=== PATIENT | male | born 1975 | race Caucasian/White ===

== ENCOUNTER 2021-04-28 11:59 | Inpatient (IN) ==
[2021-04-28 12:59] LABS: Basophils # (auto) 0.02 K/uL (0-0.2); Basophils % (auto) 0.3 %; Hematocrit (blood only) 46.7 % (42-52); Hemoglobin 15.7 g/dL (14.0-18.0); Immature Granulocytes # (auto) 0.02 K/uL (0.00-0.02); Immature Granulocytes % (auto) 0.3 %; Lymphocytes # (auto) 0.95 K/uL (1.2-3.4); Mean Corpuscular Hemoglobin 30.1 pg (25-34); Mean Corpuscular Hgb Conc 33.6 g/dL (32-36); Mean Corpuscular Volume 89.5 fL (80-100); Mean Platelet Volume 10.1 fL (7.4-10.4); Monocytes # (auto) 0.82 K/uL (0.11-0.59); Monocytes % (auto) 12.1 %; Neutrophils # (auto) 4.99 K/uL (1.4-6.5); Neutrophils % (auto) 73.3 %; Platelet Count 205 K/uL (130-400); RDW Coefficient of Variation 12.8 % (11.5-14.5); RDW Standard Deviation 42.1 fL (36.4-46.3); Red Blood Count 5.22 M/uL (4.7-6.1)
--- NOTE | 2021-04-28 13:14 | XRay Report ---
XR chest 1V portable HISTORY: 46 years-old Male SOB acute shortness of breath COMPARISON: Chest radiograph 07/26/2018 TECHNIQUE: Portable AP view of the chest FINDINGS: Unchanged cardiomegaly. Interstitial coarsening with patchy multifocal airspace opacities. No pneumot horax or large pleural effusion. Degenerative changes of the shoulders and spine. IMPRESSION: Multifocal airspace opacities are suggestive of pneumonia. ACT 112: Negative or not required by law. The above report was generated using voice recognition software. It may contain grammatical, syntax o r spelling errors. Electronically signed by: Tristian Rees M.D. 04/28/2021 1:13 PM
[2021-04-28] MEDS ORDERED: KETOROLAC TROMETHAMINE 15 MG/ML VIAL IV STA (13:16)
[2021-04-28] MEDS ORDERED: ALBUTEROL HFA 8 GM INHALER INH ONE (13:16)
[2021-04-28] MEDS ORDERED: dexAMETHasone**PF** 10 MG/ML VIAL IV ONE (13:16)
[2021-04-28] MEDS ORDERED: guaiFENesin 600 MG TABCR PO STA (13:16)
[2021-04-28] MEDS ORDERED: SODIUM CHLORIDE 0.9% 1000ML 1,000 ML IV ONE (13:17)
[2021-04-28] MEDS ORDERED: FAMOTIDINE 20MG IV PUSH 20 MG/5 ML SYR IV STA (13:17)
[2021-04-28 13:26] LABS: Partial Thromboplastin Time 27.4 Seconds (21.0-31.0); Prothrombin Time 10.1 Seconds (9.0-12.0); Troponin I < 0.03 ng/ml (0-0.04)
[2021-04-28 13:38] LABS: Alanine Aminotransferase 21 U/L (7-52); Albumin Globulin Ratio 1.1 (0.9-2); Albumin Level 3.8 gm/dl (3.4-5.0); Alkaline Phosphatase 72 U/L (34-104); Anion Gap 9 (3-11); BUN Creatinine Ratio 13.1 (10-20); Bilirubin,Total 0.6 mg/dl (0.2-1.0); Blood Urea Nitrogen 11 mg/dl (6-23); Calcium 8.5 mg/dl (8.5-10.1); Carbon Dioxide 26 mmol/L (21-32); Chloride 102 mmol/L (98-107); Creatinine Clr Calc Pharmacy 151.7 ml/min; Est GFR (African American) 120.8 ml/min; Est GFR (Non-African American) 104.3 ml/min; Globulin 3.5 gm/dl (2.5-4.0); Glucose 99 mg/dl (70-99); Magnesium 1.9 mg/dl (1.7-2.4); Sodium 137 mmol/L (136-145); Total Protein 7.3 gm/dl (6.0-8.3)
[2021-04-28 14:50] LABS: Potassium 3.5 mmol/L (3.5-5.1)
[2021-04-28 15:05] LABS: Influenza A virus by PCR Negative (Neg); Influenza B virus by PCR Negative (Neg); RSV by PCR Negative (Neg)
[2021-04-28 15:11] LABS: SARS CoV2 RNA(COVID-19) InHosp POSITIVE (Negative)
--- NOTE | 2021-04-28 15:36 | History & Physical Report ---
Date of Service April 28, 2021 Assessment & Plan (1) Pneumonia due to COVID-19 virus: (2) Hypoxia: Plan: Patient is 46 y/o M with PMH attic arthritis, GERD, obesity, history of adrenal insufficiency due to corticosteroid withdrawal in past presented to ER with com plaint of cough, shortness of breath, COVID-19. Symptom onset on 04/17/2021 with chills. Positive COVID 19 test outpatient on 04/19/2021. 04/21/2021 started with cough, congestion. PCP prescribed zithromax yesterday for COVID PNA seen on CXR. Today in ER pt afebrile, P: 106 down to 88, BP: 124/81, 89% on RA up to 95% on 2L via NC No leukocytosis. CXR: multifocal airspace opacities. + COVID-19 PCR. Negative influenza PCR, negative RSV PCR In ER was given albuterol, dexamethasone 10 mg IV, Pepcid, guaifenesin, Toradol 15, 1L NSS Negative Procalcitonin. Will hold on further antibiotics at this time CRP, Ferritin pending Airborne isolation Supplemental oxygen Dexamethasone 6mg IV daily Remdesivir Prone as able Albuterol Incentive spirometry, flutter valve CBC, CMP in am (3) Psoriatic arthritis: Plan: Previously on methotrexate, however has been off for several months On chronic prednisone 7.5 mg daily. Patient self increased to 10 mg daily a week ago when he was feeling ill Hold prednisone currently as he is receiving dexamethasone (4) GERD (gastroesophageal reflux disease): Plan: Continue PPI (5) Obesity: Plan: BMI: 39 Lifestyle modifications recommended Patient on metoprolol succinate. Unknown diagnosis. Patient reports had a stress test in the past and was put on it as a preventative measure Continue metoprolol DVT Prophylaxis -Lovenox SQ Full code as per discussion with pt. patient reports if he would further deteriorate he would want to further discuss intubation in regards to his current COVID-[address] Jhony Ball for routine care Pt was seen and care coordinated with Dr Wooten. See addendum History of Present Illness Chief Complaint: Cough, covid Primary Care Provider: Jesse Mejia MD Patient is 46 y/o M with PMH attic arthritis, GERD, obesity, history of adrenal insufficiency due to corticosteroid withdrawal in past presented to ER with complaint of cough, shortness of breath, COVID-19. Patient reports symptom onset on 04/17/2021 with chills. He had positive COVID 19 test outpatient on 04/19/2021. Patient states 04/21/2021 started with cough, congestion. Patient had telemedicine visit with PCP and was given Tessalon Perles he has been taking without significant relief. Patient also reports has been using Mucinex. He reports he had outpatient chest x-ray which was consistent with COVID-pneumonia and he was prescribed azithromycin yesterday. Patient took first initial 2 doses. States past 2 to 3 days has been having short of breath when he has coughing episodes. He feels like he is unable to get enough "air in" when having coughing episodes. Denies chest pain, pleuritic chest pain. Patient is on prednisone 7.5 mg daily however when he started feeling ill he started taking 10 mg daily. Has had decreased appetite. Patient has not received COVID-19 va ccination. Other family members are also ill with COVID-19 currently. Denies hemoptysis. Denies known fever, diaphoresis, N/V/D/C, PAULA, dizziness, syncope, vision changes, neck pain, CP, orthopnea, palpitations, sore throat, choking, otalgia, loss of taste or smell, abdominal pain, paresthesias, weakness, extremity edema, rashes, urinary symptoms. Allergies Allergy/AdvReac Type Severity Reaction Status Date / Time No Known Allergies Allergy Unknown Unverified 04/28/21 14:43 Home Medications Medication Instructions Recorded Confirmed Type folic acid 1 mg tablet 1 mg PO QAM 07/26/18 04/28/21 History omeprazole 20 mg capsule,delayed 20 mg PO QAM 07/26/18 04/28/21 History release metoprolol succinate 25 mg 12.5 mg PO QAM 06/14/20 04/28/21 History tablet,extended release 24 hr prednisone 1 mg tablet 10 mg PO QAM 04/28/21 04/28/21 History Past Med/Surg History Medical History (Updated 04/28/21 @ 17:14 by Caroline Mahajan PA-C) GERD (gastroesophageal reflux disease) Obesity Psoriatic arthritis Surgical History (Updated 04/28/21 @ 17:10 by Caroline Mahajan PA-C) History of appendectomy Hx of tonsillectomy Family History (Updated 04/28/21 @ 17:11 by Caroline Mahajan PA-C) Other No significant family history Social History (Updated 04/28/21 @ 17:11 by Caroline Mahajan PA-C) Smoking Status: Never smoker Second Hand Exposure: No; Do You Dip or Chew Tobacco: No; Tobacco Cessation Education Requested by Patient: No Hx Alcohol Use: No Hx Substance Use: No Preferred Language: Macedonian Communication Ability: Effective Grid Caster Required: No Beliefs That Will Affect Care: None Current Living Situation: Spouse Current Living Situation Comment: home current occupational status: employed current occupation: Landscaping Other Information That Helps Us Care for You: No Feels Safe at Home: Yes Safety Concerns: Feels Safe At This Time Assistive Devices: None Review of Systems Review of Systems: All systems reviewed & are unremarkable except as noted in HPI & below Physical Exam Physical Exam: General: no distress, obese Head: normocephalic, atraumatic Eyes: PERRL, EOM's intact, conjunctiva non-injected, anicteric ENT: normal inspection external ears, nose, mucous membranes moist Neck: supple, trachea midline Lungs: clear, no respiratory distress on current 2L oxygen via NC with sat 95%, no wheezing/rhonchi/rales CV: RRR, no murmur, no pretibial edema Abd: +obese, normal BS, soft, non-tender Ext: no cyanosis, no calf tenderness Neuro: A&O x 3, no focal deficits noted, normal affect Skin: warm, dry Results & Data Results & Data ([facility]) Vital Signs (Past 12 Hours) Vital Signs Temp Pulse Pulse Resp BP BP Pulse Ox 04/28/21 13:00 100 H 20 133/91 95 04/28/21 12:07 36.8 C 106 H 22 124/81 91 Laboratory Results Short CBC 04/28/21 Range/Units 12:47 WBC 6.80 (4.8-10.8) K/uL Hgb 15.7 (14.0-18.0) g/dL Hct 46.7 (42-52) % Plt Count 205 (130-400) K/uL BMP 04/28/21 04/28/21 12:47 14:12 Sodium 137 Potassium 3.5 Chloride 102 Carbon Dioxide 26 BUN 11 Creatinine 0.84 Glucose 99 Calcium 8.5 Cardiac Enzymes 04/28/21 Range/Units 12:47 Troponin I < 0.03 (0-0.04) ng/ml Liver Function 04/28/21 04/28/21 Range/Units 12:47 14:12 Total Bilirubin 0.6 (0.2-1.0) mg/dl AST 26 (13-39) U/L ALT 21 (7-52) U/L Alkaline Phosphatase 72 (34-104) U/L Albumin 3.8 (3.4-5.0) gm/dl Diagnostic Findings Chest X-Ray 04/28/21 12:12 XR chest 1V portable HISTORY: 46 years-old Male SOB acute shortness of breath COMPARISON: Chest radiograph 07/26/2018 TECHNIQUE: Portable AP view of the chest FINDINGS: Unchanged cardiomegaly. Interstitial coarsening with patchy multifocal airspace opacities. No pneumothorax or large pleural effusion. Degenerative changes of the shoulders and spine. IMPRESSION: Multifocal airspace opacities are suggestive of pneumonia. ACT 112: Negative or not required by law. The above report was generated using voice recognition software. It may contain grammatical, syntax or spelling errors. Electronically signed by: Tristian Rees M.D. 04/28/2021 1:13 PM Supervising Physician Co-Signing Physician Notes Care coordinated with Caroline Mahajan PA-C. Agree with above note. Patient seen and examined. Please refer to her notes for full details. Vital signs reviewed. Physical exam: General exam: Alert and oriented. Not in acute distress. CVS: S1 and S2 heard, regular rate and rhythm, no murmurs. RS: Clear to auscultation, no wheezing or crackles. ABD: Soft, bowel sounds present, nontender, no distention. CTRS: Nonfocal. EXT: No edema, no erythema. Labs: Reviewed. Assessment and plan: 46Y M with hx of Psoriasis, Hx of Adrenal insufficiency secondary to corticosteroid withdrawal presents with Covid pneumonia. Sathya having symptoms since . No fevers. Has cough. Poor appetite. Lately having lot of coughing spells which making him sob thats the reason he came to ER today. Currently on 2lts oxygen he is doing fine. Covid pneumonia started on remdesivir and decadron supportive care if worsening can get CTA chest. Hx of Psoriasis Currently on prednisone which is held as started on decadron. Other diagnosis and plan of care as per Caroline Mahajan PA-C. Reyes dai MD.
[2021-04-28] MEDS ORDERED: REMDESIVIR 200 MG in SODIUM CHLORIDE 0.9% 210 ML IV STA (15:51)
[2021-04-28 16:27] LABS: Ferritin 1152.6 ng/ml (8-388)
--- NOTE | 2021-04-28 18:40 | Emergency Department Note ---
Impression & Plan Pneumonia due to COVID-19 virus, Psoriatic arthritis, Hypoxia, Nausea ED Provider Note NAME: ALIYA PERALTA Jr AGE: 46 SEX: M ARRIVES VIA: Walk-In INFORMANT: Patient ED PROVIDER(S): Roverto Martines MD CHIEF COMPLAINT: SOB, COVID. PLAN: Disposition: Admit MEDICAL DECISION MAKING: The patient is a pleasant 46-year-old gentleman with a past medical history of psoriatic arthritis on chronic prednisone who presents to the emergency department for evaluation of worsening fevers, body aches, cough, shortness of breath, nausea and diarrhea with decreased oral intake over the past week in the setting of being diagnosed with COVID-19. Patient reports he had an x-ray through his doctor a couple of days ago which showed pneumonia and so was prescribed an antibiotic. He reports feeling some initial improvement for a day or so but then began to worsen. He is not vaccinated for COVID-19. On arrival the patient is uncomfortable but no acute distress, afebrile with heart in the 100s and O2 saturation 89% on room air and so was placed on 2 L nasal cannula with improvement to 98%. He appears clinically dry. Lungs with scant intermittent wheeze and rhonchi. Abdomen is benign. EKG without overt acute ischemia. Chest x-ray negative for acute c ardiopulmonary process. WBC, H/H and platelets within normal limits. He does have mild lymphopenia 2.95 consistent with the patient's known COVID-19 infection. Chemistry without metabolic acidosis. Electrolytes and LFTs without significant abnormality. Troponin negative/undetectable. COVID-19 PCR was positive. Influenza PCR was negative. Given the patient's hypoxia he was treated with dexamethasone. The patient agrees with plan for admission for further management. Case was discussed with Ledy Mahajan [facility] PAC with Dr. Wooten, [facility] hospitalist, who will evaluate the patient for admission. Triage Nursing notes reviewed and agree them. Prior medical records reviewed Vital Signs: reviewed and remarkable for hypoxia, tachycardia. Differential diagnosis: Reactive airway disease, pneumonia, pneumothorax, COPD, CHF, infections, cardiac ischemia, pulmonary embolism, musculoskeletal, gastrointestinal, as well as other pathologies. ER treatment provided: See below. Diagnostics interpreted by me: ECG: Normal sinus rhythm, 98 bpm, no ectopy, no overt ST elevation or depression, QTC 454, QRS 86. Cardiac Monitoring: An order for continuous cardiac monitoring was placed and demonstrated normal sinus rhythm, 98 bpm, no ectopy. Laboratory studies: See below Imaging studies: See below Consultation(s): Ledy Mahajan, [facility] PAC with Dr. Wooten, [facility] hospitalist. HPI: The patient is a pleasant 46-year-old gentleman with a past medical history of psoriatic arthritis on chronic prednisone who presents to the emergency department for evaluation of worsening fevers, body aches, cough, shortness of breath, nausea and diarrhea with decreased oral intake over the past week in the setting of being diagnosed with COVID-19. Patient reports he had an x-ray through his doctor a couple of days ago which showed pneumonia and so was prescribed an antibiotic. He reports feeling some initial improvement for a day or so but then began to worsen. He is not vaccinated for COVID-19. ROS: See above HPI for pertinent positives & negatives. A total of 10 systems reviewed and were otherwise negative. PAST MEDICAL HISTORY:See Below PAST SURGICAL HISTORY:See Below FAMILY HISTORY:See Below SOCIAL HISTORY:See Below HOME MEDICATIONS:See Below ALLERGIES:See Below VITALS:See Below PHYSICAL EXAMINATION: GENERAL: Awake, alert, fatigued/uncomfortable-appearing, in no distress HENT: Normocephalic, atraumatic. Oropharynx unremarkable. EYES: Normal conjunctiva. Sclera non-icteric. NECK: Supple. No nuchal rigidity. FROM. No JVD. RESPIRATORY: Scant intermittent wheeze and rhonchi. CARDIAC: Regular rate, normal rhythm. Extremities warm and well perfused. Pulses equal. ABDOMEN: Soft, non-distended. No tenderness to palpation. No rebound or guard ing. No masses. RECTAL: Deferred. MUSCULOSKELETAL: Chest examination reveals no tenderness. The back is symmetrical on inspection without obvious abnormality. There is no CVA tenderness to palpation. No joint edema. LOWER EXTREMITIES: Calves are equal size bilaterally and non-tender. No edema. No discoloration. NEURO: Normal sensorium. No sensory or motor deficits noted. SKIN: No rash or jaundice noted. Roverto Martines MD Past Med/Surg History Medical History GERD (gastroesophageal reflux disease) Obesity Psoriatic arthritis Surgical History History of appendectomy Hx of tonsillectomy Family History Other No significant family history Social History Smoking Status: Never smoker Second Hand Exposure: No; Do You Dip or Chew Tobacco: No; Tobacco Cessation Education Requested by Patient: No Hx Alcohol Use: No Hx Substance Use: No Preferred Language: Urdu Communication Ability: Effective Corrugator Required: No Beliefs That Will Affect Care: None Current Living Situation: Spouse Current Living Situation Comment: home current occupational status: employed current occupation: Landscaping Other Information That Helps Us Care for You: No Feels Safe at Home: Yes Safety Concerns: Feels Safe At This Time Assistive Devices: None Allergies Allergies Allergy/AdvReac Type Severity Reaction Status Date / Time No Known Allergies Allergy Unknown Unverified 04/28/21 14:43 Home Meds Home Medications Medication Instructions Recorded Confirmed folic acid 1 mg tablet 1 mg PO QA 07/26/18 04/28/21 omeprazole 20 mg capsule,delayed 20 mg PO [facility] 07/26/18 04/28/21 release metoprolol succinate 25 mg 12.5 mg PO QA 06/14/20 04/28/21 tablet,extended release 24 hr prednisone 1 mg tablet 10 mg PO QAM 04/28/21 04/28/21 Results & Data (ED) Vital Signs Vital Signs - 24 hr 04/28/21 12:07 04/28/21 13:00 Temperature 36.8 C Temperature Source Temporal Artery Scan Pulse Rate 106 H Pulse Rate [Right Finger] 100 H Pulse Rhythm [Right Finger] Regular Pulse Strength [Right Finger] Normal Respiratory Rate 22 20 Respiratory Effort / Characteristics Spontaneous Respiratory Depth Normal Respiratory Pattern Regular Blood Pressure 124/81 Blood Pressure [Right Arm] 133/91 Blood Pressure Mean 95 Blood Pressure Mean [Right Arm] 105 Blood Pressure Position [Right Arm] Lying Pulse Oximetry 91 95 Oxygen Delivery Method Room Air Nasal Cannula Oxygen Flow Rate 2 Sepsis Recent Fever Within 48 Hours No Sepsis New/Unexplained Change in Mental Status N/A Sepsis Action Taken by Nursing Physician Notified Oxygen Flow Rate - Titration 2 Pulse Oximetry Post Tiitration 95 Laboratory Data Result diagrams: 04/28/21 12:47 04/28/21 14:12 Lab Results 04/28/21 04/28/21 04/28/21 Range/Units 12:47 12:47 12:47 WBC 6.80 (4.8-10.8) K/uL RBC 5.22 (4.7-6.1) M/uL Hgb 15.7 (14.0-18.0) g/dL Hct 46.7 (42-52) % MCV 89.5 (80-100) fL MCH 30.1 (25-34) pg MCHC 33.6 (32-36) g/dL RDW Std Deviation 42.1 (36.4-46.3) fL RDW Coeff of Derek 12.8 (11.5-14.5) % Plt Count 205 (130-400) K/uL MPV 10.1 (7.4-10.4) fL Immature Gran % (Auto) 0.3 % Neut % (Auto) 73.3 % Lymph % (Auto) 14.0 % [place] % (Auto) 12.1 % Eos % (Auto) 0.0 % Baso % (Auto) 0.3 % Neut # (Auto) 4.99 (1.4-6.5) K/uL Lymph # (Auto) 0.95 L (1.2-3.4) K/uL Schoolcraft # (Auto) 0.82 H (0.11-0.59) K/uL Eos # (Auto) 0.00 (0-0.5) K/uL Baso # (Auto) 0.02 (0-0.2) K/uL Immature Gran # (Auto) 0.02 (0.00-0.02) K/uL PT 10.1 (9.0-12.0) Seconds INR 1.0 (0.9-1.1) APTT 27.4 (21.0-31.0) Seconds PTT Ratio 1.0 Sodium 137 (136-145) mmol/L Potassium (3.5-5.1) mmol/L Chloride 102 (98-107) mmol/L Carbon Dioxide 26 (21-32) mmol/L Anion Gap 9 (3-11) BUN 11 (6-23) mg/dl Creatinine 0.84 (0.6-1.4) mg/dl Est Cr Clr Drug Dosing 151.7 ml/min Est GFR ( Amer) 120.8 ml/min Est GFR (Non-Af Amer) 104.3 ml/min BUN/Creatinine Ratio 13.1 (10-20) Glucose 99 (70-99) mg/dl Calcium 8.5 (8.5-10.1) mg/dl Magnesium 1.9 (1.7-2.4) mg/dl Ferritin (8-388) ng/ml Total Bilirubin 0.6 (0.2-1.0) mg/dl AST (13-39) U/L ALT 21 (7-52) U/L Alkaline Phosphatase 72 (34-104) U/L Troponin I < 0.03 (0-0.04) ng/ml C-Reactive Protein (0-5.00) mg/dl Total Protein 7.3 (6.0-8.3) gm/dl Albumin 3.8 (3.4-5.0) gm/dl Globulin 3.5 (2.5-4.0) gm/dl Albumin/Globulin Ratio 1.1 (0.9-2) Procalcitonin (0-0.5) ng/ml 04/28/21 04/28/21 04/28/21 Range/Units 14:12 14:12 14:12 WBC (4.8-10.8) K/uL RBC (4.7-6.1) M/uL Hgb (14.0-18.0) g/dL Hct (42-52) % MCV (80-100) fL MCH (25-34) pg MCHC (32-36) g/dL RDW Std Deviation (36.4-46.3) fL RDW Coeff of Derek (11.5-14.5) % Plt Count (130-400) K/uL MPV (7.4-10.4) fL Immature Gran % (Auto) % Neut % (Auto) % Lymph % (Auto) % Schoolcraft % (Auto) % Eos % (Auto) % Baso % (Auto) % Neut # (Auto) (1.4-6.5) K/uL Lymph # (Auto) (1.2-3.4) K/uL Schoolcraft # (Auto) (0.11-0.59) K/uL Eos # (Auto) (0-0.5) K/uL Baso # (Auto) (0-0.2) K/uL Immature Gran # (Auto) (0.00-0.02) K/uL PT (9.0-12.0) Seconds INR (0.9-1.1) APTT (21.0-31.0) Seconds PTT Ratio Sodium (136-145) mmol/L Potassium 3.5 (3.5-5.1) mmol/L Chloride (98-107) mmol/L Carbon Dioxide (21-32) mmol/L Anion Gap (3-11) BUN (6-23) mg/dl Creatinine (0.6-1.4) mg/dl Est Cr Clr Drug Dosing ml/min Est GFR ( Amer) ml/min Est GFR (Non-Af Amer) ml/min BUN/Creatinine Ratio (10-20) Glucose (70-99) mg/dl Calcium (8.5-10.1) mg/dl Magnesium (1.7-2.4) mg/dl Ferritin 1152.6 H (8-388) ng/ml Total Bilirubin (0.2-1.0) mg/dl AST 26 (13-39) U/L ALT (7-52) U/L Alkaline Phosphatase (34-104) U/L Troponin I (0-0.04) ng/ml C-Reactive Protein 7.34 H (0-5.00) mg/dl Total Protein (6.0-8.3) gm/dl Albumin (3.4-5.0) gm/dl Globulin (2.5-4.0) gm/dl Albumin/Globulin Ratio (0.9-2) Procalcitonin < 0.05 (0-0.5) ng/ml Administered Medications Enoxaparin Sodium (Enoxaparin Inj 40 Mg/0.4 Ml Syr) 40 mg SQ Q12H LISSY Stop: 05/28/21 20:59 Last Admin: 04/28/21 21:22 Dose: 40 mg Documented by: [id number] Discontinued Medications Albuterol (Albuterol Hfa 8 Gm Inhaler) 2 puffs INH NOW ONE Stop: 04/28/21 13:17 Last Admin: 04/28/21 13:59 Dose: 2 puffs Documented by: [id number] Dexamethasone Sodium Phosphate (DexamethasonePf 10 Mg/Ml Vial) 10 mg IV NOW ONE Stop: 04/28/21 13:17 Last Admin: 04/28/21 14:00 Dose: 10 mg Documented by: [id number] Guaifenesin (Guaifenesin 600 Mg Tabcr) 600 mg PO NOW STA Stop: 04/28/21 13:17 Last Admin: 04/28/21 14:00 Dose: 600 mg Documented by: [id number] Sodium Chloride (Nss 1000ml) 1,000 mls @ 999 mls/hr IV .Q1H1M ONE Stop: 04/28/21 14:17 Last Infusion: 04/28/21 14:53 Dose: 0 mls/hr Documented by: [id number] Admin: 04/28/21 14:00 Dose: 999 mls/hr Documented by: [id number] Famotidine (Pepcid 20mg Iv Push) 20 mg in 5 mls @ 2.5 mls/min IV NOW STA Stop: 04/28/21 13:18 Last Admin: 04/28/21 14:00 Dose: 2.5 mls/min Documented by: [id number] Remdesivir 200 mg/ Sodium (Chloride) 250 mls @ 125 mls/hr IV ONE STA; Protocol Stop: 04/28/21 17:50 Last Infusion: 04/28/21 19:16 Dose: 0 mls/hr Documented by: [id number] Admin: 04/28/21 16:46 Dose: 125 mls/hr Documented by: [id number] Ketorolac Tromethamine (Ketorolac Tromethamine 15 Mg/Ml Vial) 15 mg IV NOW STA Stop: 04/28/21 13:17 Last Admin: 04/28/21 14:00 Dose: 15 mg Documented by: [id number] Imaging Data Attestation: I personally reviewed and interpreted this imaging study as follows: Radiologist's Impression: Chest X-Ray 04/28/21 12:12 XR chest 1V portable HISTORY: 46 years-old Male SOB acute shortness of breath COMPARISON: Chest radiograph 07/26/2018 TECHNIQUE: Portable AP view of the chest FINDINGS: Unchanged cardiomegaly. Interstitial coarsening with patchy multifocal airspace opacities. No pneumothorax or large pleural effusion. Degenerative changes of the shoulders and spine. IMPRESSION: Multifocal airspace opacities are suggestive of pneumonia. ACT 112: Negative or not required by law. The above report was generated using voice recognition software. It may contain grammatical, syntax or spelling errors. Electronically signed by: Tristian Rees M.D. 04/28/2021 1:13 PM Discharge Plan Visit Data Chief Complaint: Shortness of Breath/Dyspnea Stated Complaint: COVID+, SOB, COUGH, DIARRHEA, ED Provider: Roverto Martines Discharge Problem: Pneumonia due to COVID-19 virus, Psoriatic arthritis, Hypoxia, Nausea Patient Disposition: Admitted As Inpatient Discharge Instructions Interventions: ED Discharge Assessment Last Done: 04/28/21 20:09
--- NOTE | 2021-04-28 20:09 | Electrocardiogram Report ---
Test Reason : Blood Pressure : / mmHG Vent. Rate : 098 BPM Atrial Rate : 098 BPM P-R Int : 138 ms QRS Dur : 086 ms QT Int : 356 ms P-R-T Axes : 008 037 013 degrees QTc Int : 454 ms Poor data quality, interpretation may be adversely affected Normal sinus rhythm Normal ECG When compared with ECG of 06-JUN-2020 19:39, No significant change was found Confirmed by Orlando Wagoner ([id number]) on 04/28/2021 8:09:14 PM Referred By: Confirmed By:Orlando Wagoner
[2021-04-28] MEDS ORDERED: ONDANSETRON INJ 2 MG/ML 2 ML VIAL IV PRN (20:14)
[2021-04-28] MEDS ORDERED: POLYETHYLENE (MIRALAX) 17 GM PACK PO PRN (20:14)
[2021-04-28] MEDS ORDERED: ACETAMINOPHEN 325 MG TAB PO PRN (20:14)
[2021-04-28] MEDS ORDERED: ALBUTEROL HFA 8 GM INHALER INH PRN (20:14)
[2021-04-28] MEDS: ENOXAPARIN INJ 40 MG/0.4 ML SYR SQ SCH (21:22)
[2021-04-29 06:22] LABS: Hematocrit (blood only) 42.4 % (42-52); Hemoglobin 14.2 g/dL (14.0-18.0); Mean Corpuscular Hgb Conc 33.5 g/dL (32-36); Mean Corpuscular Volume 89.6 fL (80-100); Mean Platelet Volume 10.2 fL (7.4-10.4); Platelet Count 208 K/uL (130-400); RDW Coefficient of Variation 12.5 % (11.5-14.5); RDW Standard Deviation 41.3 fL (36.4-46.3); Red Blood Count 4.73 M/uL (4.7-6.1); White Blood Count 4.33 K/uL (4.8-10.8)
[2021-04-29 06:41] LABS: Albumin Globulin Ratio 1.1 (0.9-2); Albumin Level 3.4 gm/dl (3.4-5.0); Bilirubin,Total 0.4 mg/dl (0.2-1.0); Calcium 8.6 mg/dl (8.5-10.1); Creatinine Clr Calc Pharmacy 213.4 ml/min; Est GFR (African American) 138.8 ml/min; Est GFR (Non-African American) 119.7 ml/min; Globulin 3.2 gm/dl (2.5-4.0); Potassium 4.1 mmol/L (3.5-5.1); Total Protein 6.6 gm/dl (6.0-8.3)
[2021-04-29] MEDS: FOLIC ACID 1 MG TAB PO SCH (07:40)
[2021-04-29] MEDS: PANTOprazole 40 MG TAB PO SCH (07:41)
[2021-04-29] MEDS: ENOXAPARIN INJ 40 MG/0.4 ML SYR SQ SCH ×2 (07:41→20:57)
[2021-04-29] MEDS: METOPROLOL SUCC 25MG EXT REL TAB PO SCH (07:41)
[2021-04-29] MEDS: dexAMETHasone 6 MG in SYRINGE 0 ML IV SCH (07:41)
[2021-04-29] MEDS: SODIUM CHLORIDE 0.9% 10ML FLUSH IV SCH (11:13)
[2021-04-29] MEDS: REMDESIVIR 100 MG in SODIUM CHLORIDE 0.9% 230 ML IV SCH (11:13)
[2021-04-29] MEDS ORDERED: BENZONATATE 100 MG CAPSULE PO PRN (19:23)
[2021-04-29] MEDS: guaiFENesin SUGAR FREE 100 MG/5 ML UDC PO PRN (20:57)
--- NOTE | 2021-04-30 00:14 | Hospitalist Progress Note ---
Date of Service April 29, 2021 Assessment & Plan (1) Pneumonia due to COVID-19 virus: (2) Hypoxia: Plan: Patient is 46 y/o M with PMH attic arthritis, GERD, obesity, history of adrenal insufficiency due to corticosteroid withdrawal in past presented to ER with com plaint of cough, shortness of breath, COVID-19. Symptom onset on 04/17/2021 with chills. Positive COVID 19 test outpatient on 04/19/2021. 04/21/2021 started with cough, congestion. PCP prescribed zithromax yesterday for COVID PNA seen on CXR. Tested positive for COVID 19, Negative influenza PCR, negative RSV PCR CXR showed multifocal airspace opacities are suggestive of pneumonia. Continue Dexamethasone and Remdesivir Monitor LFT while on Remdesivir continue Incentive spirometry and flutter valve Currently saturated well on RA Continue advising pt about self proning Continue monitor closely (3) Psoriatic arthritis: Plan: Previously on methotrexate, however has been off for several months On chronic prednisone 7.5 mg daily. Patient self increased to 10 mg daily a week ago when he was feeling ill Hold prednisone currently as he is receiving dexamethasone (4) GERD (gastroesophageal reflux disease): Plan: Continue PPI (5) Obesity: Plan: BMI: 39 Lifestyle modifications recommended Patient on metoprolol succinate. Unknown diagnosis. Patient reports had a stress test in the past and was put on it as a preventative measure Continue metoprolol DVT Prophylaxis -Lovenox SQ Full code Admission and Anticipated Discharge Date Admission Date: April 28, 2021 Subjective Pt was seen and examined for follow of SOB due to COVID 19 Sitting in chair with no acute distress Pt said that he feels much better Saturated above 90% on RA Denies any chest pain, palpitation, dizziness and fever Review of Systems Review of Systems: All systems reviewed & are unremarkable except as noted in Subjective Physical Exam Physical Exam: General- No acute distress Head- atraumatic Eyes- PERRL, EOMI, ENT- oropharynx clear Neck- supple, no JVD Lungs- Decrease BS Heart- regular rhythm; no murmur Abdomen- normal bowel sounds, soft, nontender Extremities- no calf tenderness Neuro- alert, oriented x 3; PERRL, EOMI; no facial palsy; no dysarthria Skin- warm & dry Results & Data Results & Data ([facility]) Vital Signs (Past 12 Hours) Vital Signs Temp Pulse Resp BP Pulse Ox 04/29/21 23:00 37.0 C 82 18 142/79 H 92 04/29/21 15:59 91 04/29/21 14:44 37.0 C 81 17 125/76 93
[2021-04-30] MEDS: METOPROLOL SUCC 25MG EXT REL TAB PO SCH (08:22)
[2021-04-30] MEDS: dexAMETHasone 6 MG in SYRINGE 0 ML IV SCH (08:22)
[2021-04-30] MEDS: FOLIC ACID 1 MG TAB PO SCH (08:22)
[2021-04-30] MEDS: ENOXAPARIN INJ 40 MG/0.4 ML SYR SQ SCH ×2 (08:22→21:09)
[2021-04-30] MEDS: PANTOprazole 40 MG TAB PO SCH (08:23)
[2021-04-30] MEDS: guaiFENesin 200 MG TAB PO SCH ×3 (09:39→21:08)
[2021-04-30 10:23] LABS: Creatinine Clr Calc Pharmacy 188.1 ml/min; Est GFR (African American) 131.8 ml/min; Est GFR (Non-African American) 113.7 ml/min
[2021-04-30] MEDS: guaiFENesin SUGAR FREE 100 MG/5 ML UDC PO PRN ×2 (11:49→18:39)
[2021-04-30] MEDS: REMDESIVIR 100 MG in SODIUM CHLORIDE 0.9% 230 ML IV SCH (11:50)
[2021-04-30] MEDS: SODIUM CHLORIDE 0.9% 10ML FLUSH IV SCH (13:57)
--- NOTE | 2021-05-01 00:03 | Hospitalist Progress Note ---
Date of Service April 30, 2021 Assessment & Plan (1) Pneumonia due to COVID-19 virus: (2) Hypoxia: Plan: Patient is 46 y/o M with PMH attic arthritis, GERD, obesity, history of adrenal insufficiency due to corticosteroid withdrawal in past presented to ER with com plaint of cough, shortness of breath, COVID-19. Symptom onset on 04/17/2021 with chills. Positive COVID 19 test outpatient on 04/19/2021. 04/21/2021 started with cough, congestion. PCP prescribed zithromax yesterday for COVID PNA seen on CXR. Tested positive for COVID 19, Negative influenza PCR, negative RSV PCR CXR showed multifocal airspace opacities are suggestive of pneumonia. Continue Dexamethasone and Remdesivir Monitor LFT while on Remdesivir continue Incentive spirometry and flutter valve Currently saturated above 90% on RA Continue advising pt about self proning Will consider a trial of Lasix 20mg x1 Continue monitor closely (3) Psoriatic arthritis: Plan: Previously on methotrexate, however has been off for several months On chronic prednisone 7.5 mg daily. Patient self increased to 10 mg daily a week ago when he was feeling ill Hold prednisone currently as he is receiving dexamethasone (4) GERD (gastroesophageal reflux disease): Plan: Continue PPI (5) Obesity: Plan: BMI: 39 Lifestyle modifications recommended DVT Prophylaxis -Lovenox SQ Full code Admission and Anticipated Discharge Date Admission Date: April 28, 2021 Subjective Pt was seen and examined for follow of SOB due to COVID 19 Lying in bed with with no acute distress Pt said that he feels much better He continues to cough alot Denies any chest pain, palpitation, dizziness and fever Review of Systems Review of Systems: All systems reviewed & are unremarkable except as noted in Subjective Physical Exam Physical Exam: General- No acute distress Head- atraumatic Eyes- PERRL, EOMI, ENT- oropharynx clear Neck- supple, no JVD Lungs- Decrease BS Heart- regular rhythm; no murmur Abdomen- normal bowel sounds, soft, nontender Extremities- no calf tenderness Neuro- alert, oriented x 3; PERRL, EOMI; no facial palsy; no dysarthria Skin- warm & dry Results & Data Results & Data ([facility]) Vital Signs (Past 12 Hours) Vital Signs Temp Pulse Resp BP Pulse Ox 04/30/21 15:22 37.1 C 90 19 142/79 H 91
[2021-05-01] MEDS ORDERED: FUROSEMIDE INJ 20 MG/2 ML VIAL IV ONE (01:10)
[2021-05-01] MEDS: guaiFENesin SUGAR FREE 100 MG/5 ML UDC PO PRN ×2 (02:38→09:10)
[2021-05-01] MEDS: guaiFENesin 200 MG TAB PO SCH ×3 (02:51→15:16)
[2021-05-01 07:39] LABS: Albumin Globulin Ratio 1.1 (0.9-2); Albumin Level 3.3 gm/dl (3.4-5.0); Bilirubin,Total 0.5 mg/dl (0.2-1.0); Calcium 8.5 mg/dl (8.5-10.1); Creatinine Clr Calc Pharmacy 206.2 ml/min; Est GFR (African American) 136.9 ml/min; Est GFR (Non-African American) 118.1 ml/min; Globulin 3.1 gm/dl (2.5-4.0); Potassium 3.7 mmol/L (3.5-5.1); Total Protein 6.4 gm/dl (6.0-8.3)
[2021-05-01] MEDS: dexAMETHasone 6 MG in SYRINGE 0 ML IV SCH (08:14)
[2021-05-01] MEDS: FOLIC ACID 1 MG TAB PO SCH (08:15)
[2021-05-01] MEDS: PANTOprazole 40 MG TAB PO SCH (08:15)
[2021-05-01] MEDS: ENOXAPARIN INJ 40 MG/0.4 ML SYR SQ SCH (08:15)
[2021-05-01] MEDS: METOPROLOL SUCC 25MG EXT REL TAB PO SCH (08:15)
[2021-05-01] MEDS: REMDESIVIR 100 MG in SODIUM CHLORIDE 0.9% 230 ML IV SCH (11:27)
[2021-05-01 12:22] LABS: C Reactive Protein 7.34 mg/dl (0-0.5)
[2021-05-01 12:51] LABS: C Reactive Protein 1.1 mg/dl (0-0.5)
[2021-05-01] MEDS: SODIUM CHLORIDE 0.9% 10ML FLUSH IV SCH (13:24)
--- NOTE | 2021-05-02 00:36 | Discharge Summary ---
Date of Service May 01, 2021 Admission HPI Per Admitting Provider Patient is 46 y/o M with PMH attic arthritis, GERD, obesity, history of adrenal insufficiency due to corticosteroid withdrawal in past presented to ER with complaint of cough, shortness of breath, COVID-19. Patient reports symptom onset on 04/17/2021 with chills. He had positive COVID 19 test outpatient on 04/19/2021. Patient states 04/21/2021 started with cough, congestion. Patient had telemedicine visit with PCP and was given Tessalon Perles he has been taking without significant relief. Patient also reports has been using Mucinex. He reports he had outpatient chest x-ray which was consistent with COVID-pneumonia and he was prescribed azithromycin yesterday. Patient took first initial 2 doses. States past 2 to 3 days has been having short of breath when he has coughing episodes. He feels like he is unable to get enough "air in" when having coughing episodes. Denies chest pain, pleuritic chest pain. Patient is on prednisone 7.5 mg daily however when he started feeling ill he started taking 10 mg daily. Has had decreased appetite. Patient has not received COVID-19 vaccination. Other family members are also ill with COVID-19 currently. Denies hemoptysis. Denies known fever, diaphoresis, N/V/D/C, PAULA, dizziness, syncope, vision changes, neck pain, CP, orthopnea, palpitations, sore throat, choking, otalgia, loss of taste or smell, abdominal pain, paresthesias, weakness, extremity edema, rashes, urinary symptoms. Admission Exam Per Admitting Provider General: no distress, obese Head: normocephalic, atraumatic Eyes: PERRL, EOM's intact, conjunctiva non-injected, anicteric ENT: normal inspection external ears, nose, mucous membranes moist Neck: supple, trachea midline Lungs: clear, no respiratory distress on current 2L oxygen via NC with sat 95%, no wheezing/rhonchi/rales CV: RRR, no murmur, no pretibial edema Abd: +obese, normal BS, soft, non-tender Ext: no cyanosis, no calf tenderness Neuro: A&O x 3, no focal deficits noted, normal affect Skin: warm, dry Principal Diagnosis (1) Pneumonia due to COVID-19 virus: (2) Hypoxia: (3) Psoriatic arthritis: (4) GERD (gastroesophageal reflux disease): (5) Obesity: (6) History of Adrenal insufficiency Discharge Exam General- No acute distress Head- atraumatic Eyes- PERRL, EOMI, ENT- oropharynx clear Neck- supple, no JVD Lungs- Decrease BS Heart- regular rhythm; no murmur Abdomen- normal bowel sounds, soft, nontender Extremities- no calf tenderness Neuro- alert, oriented x 3; PERRL, EOMI; no facial palsy; no dysarthria Skin- warm & dry Discharge Data Allergies Allergy/AdvReac Type Severity Reaction Status Date / Time No Known Allergies Allergy Unknown Unverified 04/28/21 14:43 Ordered Studies XR chest 1V portable HISTORY: 46 years-old Male SOB acute shortness of breath COMPARISON: Chest radiograph 07/26/2018 TECHNIQUE: Portable AP view of the chest FINDINGS: Unchanged cardiomegaly. Interstitial coarsening with patchy multifocal airspace opacities. No pneumothorax or large pleural effusion. Degenerative changes of the shoulders and spine. IMPRESSION: Multifocal airspace opacities are suggestive of pneumonia. ACT 112: Negative or not required by law. The above report was generated using voice recognition software. It may contain grammatical, syntax or spelling errors. Electronically signed by: Tristian Rees M.D. 04/28/2021 1:13 PM Dictated:04/28/21 1312 Transcribed: 04/28/21 1312 Hospital Course (1) Pneumonia due to COVID-19 virus: (2) Hypoxia: Patient is 46 y/o M with PMH attic arthritis, GERD, obesity, history of adrenal insufficiency due to corticosteroid withdrawal in past presented to ER with complaint of cough, shortness of breath, COVID-19. Symptom onset on 04/17/2021 with chills. Positive COVID 19 test outpatient on 04/19/2021. 04/21/2021 started with cough, congestion. PCP prescribed zithromax yesterday for COVID PNA seen on CXR. Tested positive for COVID 19, Negative influenza PCR, negative RSV PCR CXR showed multifocal airspace opacities are suggestive of pneumonia. Continue Dexamethasone and Remdesivir Monitor LFT while on Remdesivir continue Incentive spirometry and flutter valve Currently saturated above 92% on RA Continue advising pt about self proning Lasix 20mg x1 given today Two-step exercise done and patient did not require any oxygen at rest and with exertion or ambulation Patient was advised to seek medical attention if symptoms worsening (3) Adrenal insufficiency due to corticosteroid withdrawal: Follow-up with endocrinology in [place] Currently is on prednisone slow taper course Prednisone on hold since patient currently on dexamethasone 6 mg IV daily#4 Case discussed with endocrinology Dr. Glez recommended if patient is clinically doing well he can go back on prednisone 10 mg daily (4) Psoriatic arthritis: Previously on methotrexate, however has been off for several months On chronic prednisone 7.5 mg daily. Patient self increased to 10 mg daily a week ago when he was feeling ill Hold prednisone currently as he is receiving dexamethasone (5) GERD (gastroesophageal reflux disease): Continue PPI (6) Obesity: BMI: 39 Lifestyle modifications recommended DVT Prophylaxis -Lovenox SQ Full code Disposition Will discharge home today Total Time Total Time Spent Total Time Spent (In Minutes): 35 minutes Discharge Plan Discharge Items Patient Disposition: Home - Self-Care Reason For Visit: COVID PNA Discharge Diagnosis: (1) Pneumonia due to COVID-19 virus: (2) Hypoxia: (3) Psoriatic arthritis: (4) GERD (gastroesophageal reflux disease): (5) Obesity: (6) History of Adrenal insufficiency Activity: Resume your previous activity Non-emergency contact: Primary Care Provider Call non-emergency contact if: you have any medication questions and your symptoms worsen Follow-up/Referrals: Jesse Mejia MD [Primary Care Provider] - (Date & Time 05/05/2021 12:00 PM Provider Cass Ball MD Department [facility] PLEASE NOTE THAT THIS IS A TELEHEALTH VIDEO APPOINTMENT. PLEASE FOLLOW THE INSTRUCTIONS PROVIDED IN YOUR EMAIL. IF YOU HAVE ANY QUESTIONS REGARDING THIS APPOINTMENT, PLEASE CALL .) Diet: Heart Healthy Addtl Attending Provider Instructions: Follow up with your primary care provider dr. Jhony Ball on 05/05/2021 at 12:00 PM at the [facility] PLEASE NOTE THAT THIS IS A TELEHEALTH VIDEO APPOINTMENT. PLEASE FOLLOW THE INSTRUCTIONS PROVIDED IN YOUR EMAIL. IF YOU HAVE ANY QUESTIONS REGARDING THIS APPOINTMENT, PLEASE CALL . Follow up with your Endocrinology provider Dr. Glez to continue taper your steroid Endocrinology recommended to resume prednisone 10mg daily, then Dr. Glez will advise you how to taper it. Seek medical attention if your symptoms worsening Continue incentive spirometry and flutter valve Continue to practice social distance and to wear mask Home Isolation COVID-19 Instructions The following information about Home Isolation is from the CDC Website: https://www.cdc.gov/coronavirus/2019-ncov/hcp/uwjhzshi-cycpppy-gqgmna.html Stay home except to get medical care People who are mildly ill with COVID-19 are able to isolate at home during their illness. You should restrict activities outside your home, except for getting medical care. Do not go to work, school, or public areas. Avoid using public transportation, ride-sharing, or taxis. Separate yourself from other people and animals in your home People: As much as possible, you should stay in a specific room and away from other people in your home. Also, you should use a separate bathroom, if available. Animals: You should restrict contact with pets and other animals while you are sick with COVID-19, just like you would around other people. Although there have not been reports of pets or other animals becoming sick with COVID-19, it is still recommended that people sick with COVID-19 limit contact with animals until more information is known about the virus. When possible, have another member of your household care for your animals while you are sick. If you are sick with COVID-19, avoid contact with your pet, including petting, snuggling, being kissed or licked, and sharing food. If you must care for your pet or be around animals while you are sick, wash your hands before and after you interact with pets and wear a face mask. Call ahead before visiting your doctor If you have a medical appointment, call the healthcare provider and tell them that you have or may have COVID-19. This will help the healthcare providers office take steps to keep other people from getting infected or exposed. Wear a face mask You should wear a face mask when you are around other people (e.g., sharing a room or vehicle) or pets and before you enter a healthcare providers office. If you are not able to wear a face mask (for example, because it causes trouble breathing), then people who live with you should not stay in the same room with you, or they should wear a face mask if they enter your room. Cover your coughs and sneezes Cover your mouth and nose with a tissue when you cough or sneeze. Throw used tissues in a lined trash can. Immediately wash your hands with soap and water for at least 20 seconds or, if soap and water are not available, clean your hands with an alcohol-based hand complaint adjuster that contains at least 60% alcohol. Clean your hands often Wash your hands often with soap and water for at least 20 seconds, especially after blowing your nose, coughing, or sneezing; going to the bathroom; and before eating or preparing food. If soap and water are not readily available, use an alcohol-based hand complaint adjuster with at least 60% alcohol, covering all surfaces of your hands and rubbing them together until they feel dry. Soap and water are the best option if hands are visibly dirty. Avoid touching your eyes, nose, and mouth with unwashed hands. Avoid sharing personal household items You should not share dishes, drinking glasses, cups, eating utensils, towels, or bedding with other people or pets in your home. After using these items, they should be washed thoroughly with soap and water. Clean all high-touch surfaces everyday High touch surfaces include counters, tabletops, doorknobs, bathroom fixtures, toilets, phones, keyboards, tablets, and bedside tables. Also, clean any surfaces that may have blood, stool, or body fluids on them. Use a household cleaning spray or wipe, according to the label instructions. Labels contain instructions for safe and effective use of the cleaning product including precautions you should take when applying the product, such as wearing gloves and making sure you have good ventilation during use of the product. Monitor your symptoms Seek prompt medical attention if your illness is worsening (e.g., difficulty breathing).Beforeseeking care, call your healthcare provider and tell them that you have, or are being evaluated for, COVID-19. Put on a face mask before you enter the facility. These steps will help the healthcare providers office to keep other people in the office or waiting room from getting infected or exposed. Ask your healthcare provider to call the local or [facility] health department. Persons who are placed under active monitoring or facilitated self- monitoring should follow instructions provided by their local health department or occupational health professionals, as appropriate. When working with your local health department check their available hours. If you have a medical emergency and need to call 911, notify the dispatch personnel that you have, or are being evaluated for COVID-19. If possible, put on a face mask before emergency medical services arrive. Discontinuing home isolation Patients with confirmed COVID-19 should remain under home isolation precautions until the risk of secondary transmission to others is thought to be low. The decision to discontinue home isolation precautions should be made on a [id number]-ojdy basis, in consultation with healthcare providers and state and local health departments. Coronavirus disease 2019 (COVID-19) is a virus that causes a respiratory illness. It is caused by a coronavirus called 2019 novel coronavirus (2019- nCoV). There are many types of coronavirus. Coronaviruses are a very common cause of bronchitis. They may sometimes cause lung infection(pneumonia). Symptoms can range from mild to severe respiratory illness. These viruses are also foundin some animals. COVID-19 was first found in people in [facility], in late 2018. In 2020, several cases of COVID-19 have been confirmed in the [place] Public health officials are working to find the source. How the virus spreads is not yet fully known. It may be spread through droplets of fluid that a person coughs or sneezes into the air. It may be spread if you touch a surface with virus on it, such as a handle or object, and then touch your mouth. What are the symptoms of COVID-19? Some people have no symptoms or mild symptoms. Symptoms may appear 2 to 14 days after contact with the virus. Symptoms can include: Fever Coughing Trouble breathing What are possible complications from COVID-19? In many cases, this virus can cause infection (pneumonia) in both lungs. In some cases, this can cause . How is COVID-19 diagnosed? Your healthcare provider will ask about your symptoms. He or she will also ask about your recent travel and contact with sick people. Testing for the virus is only done through the CDC. If yourhealthcare provider thinks you may have COVID- 19, he or she will work with your local health department and the CDC on testing. Follow all instructions from your healthcare provider. COVID-19 is diagnosed by: Nasal and throat swab. A cotton-tipped swab is wiped inside your nose or throat. This is done to check for viruses in your nasal mucus. Sputum culture. A small sample of mucus coughed from your lungs (sputum) is collected if you have a cough. It is checked for the virus. How is COVID-19 treated? There is currently no medicine to treat the virus. Treatment is done to help your body while it fights the virus. This is known as supportive care. Supportive care may include: Pain medicine. These include acetaminophen and ibuprofen. They are used to help ease pain and reduce fever. Bed rest. This helps your body fight the illness. For severe illness, you may need to stay in the hospital. Care during severe illness may include: IV (intravenous) fluids.These are given through a vein to help keep your body hydrated. Oxygen. Supplemental oxygen or ventilation with a breathing machine (ventilator) may be given. This is done to keep enough oxygen in your body. Are you at risk for COVID-19? If youve been to a place where people have been sick with this virus, you are at risk for infection. You are at risk if you: Recently traveled to an affected area Had contact with a sick person who recently traveled to this area Had contact with a person who was diagnosed with COVID-19 How can COVID-19 be prevented? There is no vaccine yet. The best prevention is to not have contact with the virus. The CDC advises that people should not travel to areas where there are COVID-19 outbreaks right now for any reason that is not urgent. To help prevent spreading the infection, wash your hands often, or use an alcohol-basedhand complaint adjuster. If you are in an area with COVID-19: Wash your hands often. Or use an alcohol-based hand complaint adjuster often. Only touch your eyes, nose, or mouth with clean hands. Dont have contact with people who are sick. Follow local instructions about being in public. For example, you may be told to not use public transport for a period of time. Stay away from markets that have live or animals. Wash your hands after touching any animals. Don't touch animals that may be sick. Dont share eating or drinking tools with sick people. Dont kiss someone who is sick. Clean surfaces often with disinfectant. If you were in an area with COVID-19 in the last 14 days: Call your healthcare provider. He or she can talk with local health staff to see what action may be needed. Follow all instructions from your provider. Take your temperature every morning and evening for at least 14 days. This is to check for fever. Keep a record of the readings. Keep watch for symptoms of the virus. Tell your provider right away if you have symptoms. If you were in an area with COVID-19 and have a fever or other symptoms: Dont panic. Keep in mind that other illnesses can cause similar symptoms. Stay away from work, school, and public places. Limit physical contact with family members. Don't kiss anyone or share eating or drinking utensils. Clean surfaces you touch with disinfectant. This is to help prevent the virus from spreading. Call your healthcare provider. Explain that you have been exposed to COVID-19 and have symptoms. Do this before going to any hospital. Wait for instructions. Keep in mind that healthcare staff may wear protective equipment such as masks, gowns, gloves, and eye protection. You may be put in a separate room. This is to prevent the possible virus from spreading. Tell the healthcare staff about recent travel. This includes local travel on public transport. Staff may need to find other people you have been in contact with. Follow all instructions the healthcare staff give you. If you have been diagnosed with COVID-19 Follow all instructions from your healthcare provider. Dont leave your home, except to get medical care. Call your healthcare providers office before going. They can prepare and give you instructions. This will help prevent the virus from spreading. Dont go to work, school, or public areas. Dont use public transport or taxis. Stay away from other people in your home. Have them wear face masks around you. Dont share household items or food. Wear a face mask if you can. This includes at home or in a medical facility. Cover your face with a tissue when you cough or sneeze. Throw the tissue away. Wash your hands. Wash your hands often. Caregivers should: Follow all instructions from healthcare staff. Wear a face mask and protective clothing as advised. Wash hands often. Keep track of the sick persons symptoms. Clean surfaces, fabrics, and laundry thoroughly. Keep other people away from the sick person. When to call your healthcare provider Call your healthcare provider: If youve recently traveled and have symptoms If you have been diagnosed with COVID-19 and your symptoms are worse To learn more To find out more about COVID-19, visit the CDC website at www.cdc.gov/coronavirus/2019-ncov/index.html. [employer]. [address] [place] [address]. All rights reserved. This information is not intended as a substitute for professional medical care. Always follow your healthcare professional's instructions. This information has been adapted from [employer] Pending Studies at Discharge: No Stand-Alone Forms: [facility] [employer], Smoking Cessation Medications and DC Order Prescriptions: New guaifenesin 200 mg Tablet 200 mg PO Q8H PRN (Reason: cough) Qty: 21 RF: 0 prednisone 10 mg tablet 10 mg PO DAILY Qty: 10 RF: 0 Continued omeprazole 20 mg capsule,delayed release(DR/EC) 20 mg PO QAM RF: 0 folic acid 1 mg tablet 1 mg PO QAM RF: 0 metoprolol succinate 25 mg tablet extended release 24 hr 12.5 mg PO QAM RF: 0 Discontinued prednisone 1 mg tablet 10 mg PO QAM RF: 0 Discharge Orders: Discharge Order (Routine); Ordered 05/01/21 Ordered By: Aide Villa Admission Data Admit Date/Time: 04/28/21 15:50 Attending Provider: Aide Villa Admit Provider: Reyes Wooten Primary Care Provider: Jesse Mejia Other Providers: Reyes Wooten Other Interventions: Discharge Summary Assessment (RN) Last Done: 05/01/21 17:22
== END 2021-05-01 18:02 | disposition home or self-care (01) | DRG 177 ==
LOC: ED 11:59 → SUATTDRO 15:50 → 2W 15:50